=== PATIENT | female | born 1945 | race Two or more races ===

== ENCOUNTER 2024-04-02 14:03 | Emergency (ER) | payer OTHER, MEDICAID ==
[~2024-04-02] VITALS: Ht 170.2 cm; Wt 77.0 kg
[2024-04-02 14:57] VITALS: BP 167/79; PULSE 88; RESP 88; TEMP 98.1; O2SAT 94
--- NOTE | 2024-04-02 14:59 | ED.PDOC ---
Garcia. trauma (HPI) HPI Comments A 78 YEAR OLD FEMALE BROUGHT IN BY AMBULANCE PRESENTS TO THE ED WITH COMPLAINT OF LEFT WRIST PAIN, RIGHT FOOT PAIN, AND NECK PAIN S/P FALL. PATIENT STATES SHE ACCIDENTALLY TRIPPED AND FELL EARLIER TODAY. PATIENT REPORTS SHE IS NOW EXPERIENCING RIGHT FOOT PAIN, LEFT WRIST PAIN, AND NECK PAIN. PATIENT IS ABLE TO WALK AND BEAR WEIGHT WITH A STABLE GAIT. PATIENT DENIES HEAD INJURY, LOC, FEVER, CHILLS, SHORTNESS OF BREATH, CHEST PAIN, ABDOMINAL PAIN, NAUSEA, VOMITING, HEADACHE, OR OTHER COMPLAINTS. NO OTHER SYMPTOMS OR MODIFYING FACTORS AT THIS TIME. PATIENT IS ALERT, ORIENTED X 4, AND HAS STEADY GAIT. Chief Complaint: Fall Injury Time Seen by MD: 14:15 Reviewed notes: Nurses Notes, Spa Concierge Notes, Medications, Allergies Allergies: Coded Allergies: NO KNOWN ALLERGIES (Unverified , 04/02/24) Home Meds Active Scripts Acetaminophen (Tylenol 8 Hour Arthritis) 650 Mg Tab, 650 MG PO TID, #40 TAB Prov:VITO PARKER 04/02/24 Information Source: Emergency Med Personnel Mode of Arrival: EMS Severity: Moderate Timing: Days Duration: Since onset, Days Prehospital treatment: None Location: (R) Foot, Neck, (L) Wrist Location of neck pain: (R) Posterior, (L) Posterior Location of laceration: None Mechanism: Fall Associated signs and symtoms: None Past Medical History PAST MEDICAL HISTORY: Depression, DM, HTN Surgical History: Denies all surgeries SERVICE NOW DEVELOPER History: No Pertinent SERVICE NOW DEVELOPER History Family History Family History: Reviewed,noncontributory to illness Social History Smoker: Non-Smoker Alcohol: Denies ETOH Use Drugs: Denies Drug Use Lives In: Home Constitutional: denies: chills, diaphoresis, fatigue, fever, malaise, sweats, weakness, others EENTM: denies: blurred vision, double vision, ear bleeding, ear discharge, ear drainage, ear pain, ear ringing, eye pain, eye redness, hearing loss, mouth pain, mouth swelling, nasal discharge, nose bleeding, nose congestion, nose p ain, photophobia, tearing, throat pain, throat swelling, voice changes, others Respiratory: denies: cough, hemoptysis, orthopnea, SOB at rest, shortness of breath, SOB with excertion, stridor, wheezing, others Cardiovascular: denies: chest pain, dizzy spells, diaphoresis, Dyspnea on exertion, edema, irregular heart beat, left arm pain, lightheadedness, palpitations, PND, syncope, others Gastrointestinal: denies: abdomen distended, abdominal pain, blood streaked bowels, constipated, diarrhea, dysphagia, difficulty swallowing, hematemesis, melena, nausea, poor appetite, poor fluid intake, rectal bleeding, rectal pain, vomiting, others Genitourinary: denies: abnormal vagina bleeding, burning, dyspareunia, dysuria, flank pain, frequency, hematuria, incontinence, pain, , vagina discharge, urgency, others Neurological: denies: dizziness, fainting, headache, left sided numbness, left sided weakness, numbness, paresthesia, pre-existing deficit, right sided numbness, right sided weakness, seizure, speech problems, tingling, tremors, weakness, others Musculoskeletal: reports: joint pain, joint swelling, muscle pain, neck pain, others (LEFT WRIST PAIN, RIGHT FOOT PAIN); denies: back pain, gout, muscle stiffness Integumetry: denies: bruises, change in color, change in hair/nails, dryness, laceration, lesions, lumps, rash, wounds, others Allergic/Immunocompromised: denies: Difficulty Healing, Frequent Infections, Hives, Itching, others Hematologic/Lymphatic: denies: anemia, blood clots, easy bleeding, easy bruising, swollen glands, others Endocrine: denies: excessive hunger, excessive sweating, excessive thirst, excessive urination, flushing, intolerance to cold, intolerance to heat, unexplained weight gain, unexplained weight loss, others Psychiatric: denies: anxiety, bipolar disorder, depression, hopeless, panic disorder, schizophrenia, sleepless, suicidal, others All Other Systems: Reviewed and Negative Physical Exam General Appearance: No Apparent Distress, Normal HEENT: Normal ENT Inspection, PERRL/EOMI, Pharynx Normal, TMs Normal Neck: Full Range of Motion, Normal Inspection, Supple, Tender Lateral (TENDERNESS AND MUSCLE SPASM ON POSTERIOR NECK, NO BONY TENDERNESS AND DEFORMITY. ) Respiratory: Chest Non-Tender, Lungs Clear, No Accessory Muscle Use, No Respiratory Distress, Normal Breath Sounds Cardiovascular: No Edema, No JVD, No Murmur, No Gallop, Normal Peripheral Pulses, Regular Rate/Rhythm Breast Exam: Deferred Gastrointestinal: No Organomegaly, Non Tender, No Pulsatile Mass, Normal Bowel Sounds, Soft Genitalia: Deferred Pelvic: Deferred Rectal: Deferred Extremities: Decreased range of motion, No calf tenderness, Normal capillary refill, No pedal edema, Swelling (BONY TENDERNESS AND SWELLING ON RIGHT FOOT, 5TH TOE REGION, NO DEFORMITY. ), Tender (TENDERNESS AND MILD SWELLING ON LEFT WRIST, NO BONY TENDERNESS AND DEFORMITY. ) Musculoskeletal : Apperance: Normal Neurologic: Alert, utility division project manager II-XII nml as Tested, No Motor Deficits, Normal Affect, Normal Mood, No Sensory Deficits Cerebellar Function: Normal Reflexes: Normal Skin: Dry, Normal Color, Warm Peripheral Pulses: 2+ carotid (R), 2+ carotid (L), 2+ dorsalis pedis (R), 2+ dorsalis pedis (L), 2+ Radial (R), 2+ Radial (L) Lymphatic: No Adenopathy Was a procedure done? Was a procedure done?: No Differential Diagnosis Multiple Trauma: Fractures, Contusion, Other (SPRAIN, MUSCLE STRAIN) Neck Injury: Cervical Muscle Spasm, Cervical Sprain, Cervical Strain, Cervical Fracture X-Ray, Labs, Meds, VS Vital Signs Date Time Temp Pulse Resp B/P (MAP) Pulse Ox O2 Delivery O2 Flow Rate FiO2 04/02/24 14:57 88 88 94 Room Air 04/02/24 14:57 98.1 88 18 167/79 (108) 94 98.1 04/02/24 14:04 98.1 88 18 167/79 (108) 94 Current Medications Medications (Trade) Dose Ordered Sig/Brandon Route Start Time Stop Time Status Last Admin Acetaminophen (Tylenol Tablet Or Capsule) 1,000 mg ONCE ONCE PO 04/02/24 15:00 04/02/24 15:01 DC 04/02/24 15:00 CLINICAL INDICATION: fall TECHNIQUE: 3 radiographic views of the cervical spine were obtained. Comparison: None FINDINGS/IMPRESSION: 7 [id number] cervical type vertebrae. Straightening of the cervical lordosis. The vertebral body heights are maintained. The dens is intact with the lateral masses of C1 and C2 properly aligned. Moderate to severe degenerative changes at C4-C5, C5-C6 and C6-C7. No evidence of acute traumatic fractures or spondylolisthesis. The prevertebral soft tissues are unremarkable. The airways are patent. ATED BY: TRESSA ANNE DO DICTATED DATE/TIME: 04/02/241537 SIGNED BY: TRESSA ANNE DO SIGNED DATE/TIME: 04/02/241537 CC: CLINICAL INDICATION: fall TECHNIQUE: 3 radiographic views of the right foot were obtained. Comparison: None FINDINGS/IMPRESSION: There is questionable minimal cortical step-off of the base of the 5th toe proximal phalanx. Recommend correlation with point tenderness. Otherwise, no evidence of acute fracture or dislocation. Deformity of the 2nd toe proximal phalanx head which may be from prior injury. Moderate degenerative changes of the 1st metatarsophalangeal joint. Small plantar calcaneal bony spur. The alignment is anatomical. Vascular calcification is noted. ATED BY: TRESSA ANNE DO DICTATED DATE/TIME: 04/02/241532 SIGNED BY: TRESSA ANNE DO SIGNED DATE/TIME: 04/02/241532 CC: CLINICAL INDICATION: fall TECHNIQUE: 3 radiographic views of the left wrist were obtained. Comparison: None FINDINGS/IMPRESSION: There is no evidence of acute fracture or dislocation. Moderate severe degenerative changes of the 1st carpometacarpal joint. Old fracture deformity of the ulnar styloid. The alignment is anatomical. There is no radiopaque foreign body. ATED BY: TRESSA ANNE DO DICTATED DATE/TIME: 04/02/241530 SIGNED BY: TRESSA ANNE DO SIGNED DATE/TIME: 04/02/241530 CC: X-Ray, Labs, Meds, VS Comment EXTERNAL MEDICAL RECORDS REVIEWED: [NONE] INDEPENDENT HISTORIANS: [NONE] SOCIAL DETERMINANTS OF HEALTH: [NONE] LABS ORDERED: NONE REVIEWED AND INTERPRETED RESULTS: NONE IMAGING ORDERED: XR WRIST LT, XR C-SPINE, XR FOOT RT TREATMENTS ORDERED: TYLENOL 1G PO PROCEDURES PERFORMED: NONE CRITICAL CARE TIME: NONE I HAVE DISCUSSED THE PATIENT WITH THE ATTENDING PHYSICIAN DR. JACOBS AND HE AGREES WITH THE PATIENT'S PLAN OF CARE AND DISPOSITION. BASED ON HISTORY OF PRESENT ILLNESS, AND PHYSICAL EXAM, PATIENT WILL BE DISCHARGED HOME. SHARED DECISION MAKING: PATIENT INSTRUCTED TO FOLLOW UP WITH PRIMARY CARE PROVIDER IN 1-2 DAYS FOR RE-EVALUATION OF SYMPTOMS. PATIENT VERBALIZES UNDERSTANDING TO RETURN TO ED FOR NEW OR WORSENING SYMPTOMS OR IF FOLLOW UP WITH PCP CANNOT BE OBTAINED. PATIENT FEELS COMFORTABLE GOING HOME AT THIS TIME. ALL QUESTIONS ADDRESSED AT TIME OF DISCHARGE. Images Reviewed?: Images reviewed and evaluated by me Time of 1ST Reevaluation: 15:54 Reevaluation 1ST: Improved Patient Education/Counseling: Diagnosis, Treatment, Need For Follow Up Family Education/Counseling: Diagnosis, Treatment, Need For Follow Up Medical Screening: No EMC Exist At This Time Departure 1 Departure Time of Disposition: 16:00 Impression: Primary Impression: Fracture of fifth toe, right, closed Qualified Codes: S92.501A - Displaced unspecified fracture of right lesser toe(s), initial encounter for closed fracture Additional Impressions: Cervical muscle strain Qualified Codes: S16.1XXA - Strain of muscle, fascia and tendon at neck level, initial encounter Sprain of left wrist Qualified Codes: S63.502A - Unspecified sprain of left wrist, initial encounter Status post fall Disposition: 01 HOME / SELF CARE / HOMELESS Condition: Stable Additional Instructions: FOLLOW-UP WITH PCP IN 1 TO 2 DAYS. TAKE MEDICATIONS PRESCRIBED. RETURN TO ED FOR ANY NEW OR WORSENING SYMPTOMS. e-Prescriptions Acetaminophen (Tylenol 8 Hour Arthritis) 650 Mg Tab 650 MG PO TID, #40 TAB Prov: VITO PARKER 04/02/24 Discharged With: Self, Relative Critical Care Note Critical Care Time?: No Stability Stability form required: No I personally scribed for VITO PARKER ([email or web address]) on 04/02/24 at 14:59. Electronically submitted by Tyrone Harrington ([email or web address]). I personally scribed for VITO PARKER ([email or web address]) on 04/02/24 at 15:52. Electronically submitted by Tyrone Harrington ([email or web address]). I personally scribed for VITO PARKER ([email or web address]) on 04/02/24 at 15:54. Electronically submitted by Tyrone Harrington ([email or web address]). VITO PARKER Apr 02, 2024 14:59
[2024-04-02] MEDS: ACETAMINOPHEN 500 MG TAB or CAP PO ONE (15:00)
--- NOTE | 2024-04-02 15:34 | DVH ---
CLINICAL INDICATION: fall TECHNIQUE: 3 radiographic views of the left wrist were obtained. Comparison: None FINDINGS/IMPRESSION: There is no evidence of acute fracture or dislocation. Moderate severe degenerative changes of the 1st carpometacarpal joint. Old fracture deformity of the ulnar styloid. The alignment is anatomical. There is no radiopaque foreign body.
--- NOTE | 2024-04-02 15:36 | DVH ---
CLINICAL INDICATION: fall TECHNIQUE: 3 radiographic views of the right foot were obtained. Comparison: None FINDINGS/IMPRESSION: There is questionable minimal cortical step-off of the base of the 5th toe proximal phalanx. Recomme nd correlation with point tenderness. Otherwise, no evidence of acute fracture or dislocation. Defo rmity of the 2nd toe proximal phalanx head which may be from prior injury. Moderate degenerative changes of the 1st metatarsophalangeal joint. Small plantar calcaneal bony spur . The alignment is anatomical. Vascular calcification is noted.
--- NOTE | 2024-04-02 15:41 | DVH ---
CLINICAL INDICATION: fall TECHNIQUE: 3 radiographic views of the cervical spine were obtained. Comparison: None FINDINGS/IMPRESSION: 7 [id number] cervical type vertebrae. Straightening of the cervical lordosis. The vertebral bod y heights are maintained. The dens is intact with the lateral masses of C1 and C2 properly aligned. M oderate to severe degenerative changes at C4-C5, C5-C6 and C6-C7. No evidence of acute traumatic fra ctures or spondylolisthesis. The prevertebral soft tissues are unremarkable. The airways are patent.
[2024-04-02] MEDS ORDERED: ACET-1080 PO (15:54)
== END 2024-04-02 16:05 | disposition home or self-care (01) ==
LOC: EDBD 14:03 → ER 14:03
DX: S92.501A Displaced unspecified fracture of right lesser toe(s), initial encounter for closed fracture (principal); S16.1XXA Strain of muscle, fascia and tendon at neck level, initial encounter; S63.592A Other specified sprain of left wrist, initial encounter; I10 Essential (primary) hypertension; E11.9 Type 2 diabetes mellitus without complications; F32.A Depression, unspecified; W01.0XXA Fall on same level from slipping, tripping and stumbling without subsequent striking against object, initial encounter; X58.XXXA Exposure to other specified factors, initial encounter; Y93.89 Activity, other specified; Y92.89 Other specified places as the place of occurrence of the external cause; Y99.8 Other external cause status
CPT/HCPCS: 72040; 73110; 73630